=== PATIENT | female | born 1990 | race Caucasian/White ===

== ENCOUNTER 2020-02-06 18:48 | Emergency (ER) | payer BC, OTHER ==
--- NOTE | 2020-02-06 19:14 | EDM.PDOC ---
ED HPI GENERAL MEDICAL PROBLEM - General Chief Complaint: Laceration Stated Complaint: FALL FROM HORSE Time Seen by Provider: 02/06/20 18:50 Source of Information: Reports: Patient, Family History Limitations: Reports: No Limitations - History of Present Illness INITIAL COMMENTS - FREE TEXT/NARRATIVE: Patient states approximate about 45 minutes ago she was thrown forward on her horse hitting his neck and it was bucked off. She states she did hit the ground and was dazed for just a few seconds but unsure if she blacked out but she was able to get up and walk to the house afterwards. She now has a chief complaint of laceration above her right eye and her right ankle hurting. She states she got a little nauseated when she saw her blood which is her normal after she cove red up in a few minutes later it went away. She has no other complaints at this time last tetanus was a few months ago she has no medical problems she did have a prior head injury several years ago but no issues since. Onset: Today, Sudden Duration: Minutes: Location: Reports: Neck, Lower Extremity, Right Severity: Mild Improves with: Reports: None Worsens with: Reports: None Associated Symptoms: Reports: Nausea/Vomiting. Denies: Confusion, Chest Pain, Diaphoresis, Headaches, Shortness of Breath, Syncope, Weakness - Related Data Allergies Allergy/AdvReac Type Severity Reaction Status Date / Time medical tape Allergy Other Uncoded 02/06/20 19:04 Home Meds: Home Meds Ethinyl Estradiol/Drospirenone [Drospirenone-Ee 3-0.03 mg Tab] 1 each PO DAILY 02/06/20 [History] Past Medical History - Past Health History Medical/Surgical History: Denies Medical/Surgical History Social & Family History - Tobacco Use Smoking Status *Q: Unknown Ever Smoked ED ROS GENERAL - Review of Systems Review Of Systems: See Below Constitutional: Reports: No Symptoms. Denies: Weakness HEENT: Denies: Dental Pain, Ear Pain, Eye Pain, Nosebleed, Sinus Problem, Throat Pain, Throat Swelling Respiratory: Reports: No Symptoms. Denies: Shortness of Breath, Cough Cardiovascular: Reports: No Symptoms. Denies: Chest Pain Endocrine: Reports: No Symptoms GI/Abdominal: Reports: Nausea. Denies: Abdominal Pain : Reports: No Symptoms Musculoskeletal: Reports: Neck Pain, Foot Pain Skin: Reports: No Symptoms Neurological: Reports: No Symptoms Psychiatric: Reports: No Symptoms Hematologic/Lymphatic: Reports: No Symptoms Immunologic: Reports: No Symptoms ED EXAM, SKIN/RASH Exam: See Below Exam Limited By: No Limitations General Appearance: Alert, WD/WN, No Apparent Distress Eye Exam: Bilateral Eye: EOMI, PERRL, Other (No tenderness to palpation over the globes the orbits of the sinus cavities) Ears: Normal External Exam, Normal Canal, Hearing Grossly Normal, Normal TMs, Other (No blood noted behind the tympanic membranes) Nose: Normal Inspection, Normal Mucosa, No Blood Throat/Mouth: Normal Inspection, Normal Lips, Normal Teeth, Normal Gums, Normal Oropharynx, Normal Voice, No Airway Compromise Head: Atraumatic, Normocephalic. No: Facial Swelling, Facial Tenderness Neck: Normal Inspection, Supple, Full Range of Motion, Other (Patient noted to be moving neck with full range of motion upon entering the room she does have tenderness to palpation over the C5 area there is no noted step-offs no crepitus no abrasions or ecchymosis). No: Non-Tender Respiratory/Chest: No Respiratory Distress, Lungs Clear, Normal Breath Sounds, No Accessory Muscle Use, Chest Non-Tender Cardiovascular: Normal Peripheral Pulses, Regular Rate, Rhythm, No Edema, No Gallop, No JVD, No Murmur, No Rub GI/Abdominal: Normal Bowel Sounds, Soft, Non-Tender, No Organomegaly, No Distention, No Abnormal Bruit, No Mass, Pelvis Stable Back Exam: Normal Inspection, Full Range of Motion. No: Vertebral Tenderness Extremities: Normal Inspection, Normal Range of Motion, Other (Patient has mild tenderness palpation over the right lateral malleolus no tenderness palpation over the medial malleolus navicular no tenderness palpation over the proximal tibial plateau area she has neurovascular intact with all extremities equal soft touch sensation normal pulses). No: Non-Tender Neurological: Alert, Oriented, CN II-XII Intact, Normal Cognition, Normal Gait, Normal Reflexes, No Motor/Sensory Deficits, Other (Cranial nerves II through XII are intact patient is alert and oriented x4 with normal conversation logical thought process asking for something to drink states she is currently hungry) Psychiatric: Normal Affect, Normal Mood Skin: Warm, Dry, Intact, Normal Color, No Rash, Other (Linear laceration just a yolanda the right eyebrow approximately 5 cm x 3 mm x 3 mm) Course - Vital Signs Text/Narrative:: CT head was held secondary to prior multiple head CTs with injury in the past patient is alert and oriented at this time plain film ordered of the C-spine and ankle patient will be observed given p.o. and reassessed X-ray of ankle no acute findings C-spine no acute findings noted degenerative changes C5 and 6 Laceration was irrigated normal saline and cleaned with Hibiclens was closed with well approximation with Dermabond and Steri-Strips Patient and mother were given signs and symptoms of head injury and need to return to the emergency room as well as wound care instructions both give verbal understanding patient also has a roommate that is a nurse Patient was rechecked several times cranial nerves II through XII are intact there is no nausea no vomiting with the patient she is holding p.o. all vital signs are stable within normal limits Last Recorded V/S: Last Vital Signs Temp 36.4 C 02/06/20 18:50 Pulse 61 02/06/20 18:50 Resp 18 02/06/20 18:50 BP 109/62 02/06/20 18:50 Pulse Ox 98 02/06/20 18:50 Departure - Departure Time of Disposition: 20:15 Disposition: Home, Self-Care 01 Condition: Good Clinical Impression: Laceration of forehead without complication, Head injury due to trauma - Discharge Information *PRESCRIPTION DRUG MONITORING PROGRAM REVIEWED*: No *COPY OF PRESCRIPTION DRUG MONITORING REPORT IN PATIENT TONYA: No Referrals: Dick Baker PA-C [Primary Care Provider] - Forms: ED Department Discharge Sepsis Event Note (ED) - Evaluation Sepsis Screening Result: No Definite Risk - Focused Exam Vital Signs: Vital Signs Temp Pulse Resp BP Pulse Ox 02/06/20 18:50 36.4 C 61 18 109/62 98 - Problem List & Annotations (1) Head injury due to trauma SNOMED Code(s): 25410771 Code(s): S09.90XA - UNSPECIFIED INJURY OF HEAD, INITIAL ENCOUNTER Status: Acute Current Visit: Yes (2) Laceration of forehead without complication SNOMED Code(s): 691564569 Code(s): S01.81XA - LACERATION W/O FOREIGN BODY OF OTH PART OF HEAD, INIT ENCNTR Status: Acute Current Visit: Yes
--- NOTE | 2020-02-06 19:46 | CR ---
[id number] RAD/RAD Ankle Right 3V Min EXAM: RAD Ankle Right 3V Min CLINICAL DATA: TRAUMA COMPARISON: NO PREVIOUS SIMILAR EXAM IS AVAILABLE. FINDINGS: No fracture or dislocation is seen. There is no radiopaque foreign body in the soft tissues. There is no air in the soft tissues. There is no cortical thickening or periosteal reaction either. IMPRESSION: NEGATIVE PLAIN FILM EXAM. Tomas Pearson MD 02/06/20 [id number] Thank you for allowing us to participate in the care of your patient.
--- NOTE | 2020-02-06 19:47 | CR ---
[id number] RAD/RAD Cervical Spine 2-3V EXAM: RAD Cervical Spine 2-3V CLINICAL DATA: TRAUMA COMPARISON: NO PREVIOUS SIMILAR EXAM IS AVAILABLE. FINDINGS: No fracture or subluxation is seen There are early degenerative changes involving C5-C6. The prevertebral soft tissues are unremarkable IMPRESSION: NO FRACTURE OR SUBLUXATION Tomas Pearson MD 02/06/20 1946 Thank you for allowing us to participate in the care of your patient.
== END 2020-02-06 21:02 | disposition home or self-care (01) ==
LOC: VM.ED 18:48
DX: S09.90XA Unspecified injury of head, initial encounter (principal); S01.81XA Laceration without foreign body of other part of head, initial encounter; Z91.09 Other allergy status, other than to drugs and biological substances; V80.010A Animal-rider injured by fall from or being thrown from horse in noncollision accident, initial encounter
CPT/HCPCS: 12013; 72040; 73610-RT; 99283-25; 99284-GF